=== PATIENT | female | born 1990 | race African-American/Black ===

== ENCOUNTER 2017-11-11 15:02 | Emergency (ER) | payer OTHER ==
[~2017-11-11] VITALS: Ht 188 cm; Wt 99.8 kg
[~2017-11-11 15:02] MED LIST: ALBU8.5H8 IH; LEVO500T59 PO; LORA10TA68 PO; PRED50TA PO
--- NOTE | 2017-11-11 15:36 | RAD ---
PA and lateral chest radiograph. History: Shortness of breath, wheezing. Comparison: March 23, 2016. Findings: Cardiomediastinal silhouette is within normal limits for size. Bilateral lung polanco appear clear without evidence of infiltrate, effusion, or pneumothorax. Impression: 1. No acute cardiopulmonary process. Electronically signed by: Danilo Ortiz MD (11/11/2017 3:33 PM) [facility]
--- NOTE | 2017-11-11 15:55 | PHYS DOC ---
Past History Past Medical History: Asthma Past Surgical History: No Surgical History Alcohol Use: None Drug Use: None Adult General Chief Complaint Chief Complaint: SHORTNESS OF BREATH HPI HPI 27-year-old female presents with shortness of breath. The patient has had increasing shortness of breath for last 2 days. She was diagnosed 1 years ago with asthma and was placed on albuterol inhalers. She has been using these 4 times a day yesterday and today. She is also taking Mucinex and Flonase for what she believes are seasonal allergies. The patient's symptoms are worse at night when she is working at [employer]. She feels like "I just can't get enough air ". The patient is a smoker. She was admitted to the hospital one year ago for several days for what was determined to be an asthma attack. She was on BiPAP at least a couple days. She denies fever or chills. She denies chest pain. He has a dry cough. Review of Systems Review of Systems Constitutional: Denies fever or chills [] Eyes: Denies change in visual acuity, redness, or eye pain [] HENT: Denies nasal congestion or sore throat [] Respiratory: Some shortness of breath, worse with activity [] Cardiovascular: No additional information not addressed in HPI [] GI: Denies abdominal pain, nausea, vomiting, bloody stools or diarrhea [] : Denies dysuria or hematuria [] Musculoskeletal: Denies back pain or joint pain [] Integument: Denies rash or skin lesions [] Neurologic: Denies headache, focal weakness or sensory changes [] Endocrine: Denies polyuria or polydipsia [] All other systems were reviewed and found to be within normal limits, except as documented in this note. Allergies Allergies Allergies Coded Allergies Type Severity Reaction Last Updated Verified No Known Drug Allergies 07/09/14 No Physical Exam Physical Exam Constitutional: Well developed, well nourished, no acute distress, non-toxic appearance. [] HENT: Normocephalic, atraumatic, bilateral external ears normal, oropharynx moist, no oral exudates, nose normal. [] Eyes: PERRLA, EOMI, conjunctiva normal, no discharge. [] Neck: Normal range of motion, no tenderness, supple, no stridor. [] Cardiovascular:Heart rate regular rhythm, no murmur [] Lungs & Thorax: Expiratory wheezes on the right. Decreased breath sounds at the bilateral bases. [] Abdomen: Bowel sounds normal, soft, no tenderness, no masses, no pulsatile masses. [] Skin: Warm, dry, no erythema, no rash. [] Back: No tenderness, no CVA tenderness. [] Extremities: No tenderness, no cyanosis, no clubbing, ROM intact, no edema. [] Neurologic: Alert and oriented X 3, normal motor function, normal sensory function, no focal deficits noted. [] Psychologic: Affect normal, judgement normal, mood normal. [] Current Patient Data Vital Signs Vital Signs Date Time Temp Pulse Resp B/P (MAP) Pulse Ox O2 Delivery O2 Flow Rate FiO2 11/11/17 15:02 98.2 80 18 95 Room Air EKG EKG [] Radiology/Procedures Radiology/Procedures PA and lateral chest radiograph. History: Shortness of breath, wheezing. Comparison: March 23, 2016. Findings: Cardiomediastinal silhouette is within normal limits for size. Bilateral lung polanco appear clear without evidence of infiltrate, effusion, or pneumothorax. Impression: 1. No acute cardiopulmonary process. Electronically signed by: Danilo Ortiz MD (11/11/2017 3:33 PM) [facility][] Course & Med Decision Making Course & Med Decision Making Pertinent Labs and Imaging studies reviewed. (See chart for details) Chest x-ray is unremarkable. I believe the patient is just having an extended, partially treated asthma attack. I will treat her with Solu-Medrol here in the ED followed by 3 days of prednisone at home. Her OXYGEN saturations on room air have always been in the mid 90s. I stressed to the patient the importance of smoking cessation. [] Dragon Disclaimer Dragon Disclaimer This electronic medical record was generated, in whole or in part, using a voice recognition dictation system. Departure Departure: Referrals: JYOTI QUEEN (PCP) Scripts Prednisone (PREDNISONE) 20 Mg Tablet 3 TAB PO DAILY for 3 Days, #9 TAB Prov: GRANT PRESTON DO 11/11/17 GRANT PRESTON DO November 11, 2017 15:55
[2017-11-11 16:01] VITALS: BP 135/85
[2017-11-11] MEDS ORDERED: PRED20TA PO (16:02)
[2017-11-11] MEDS ORDERED: methylPREDNISolone SOD SUCC PF 125 MG/2 ML VIAL. IM ONE (16:15)
== END 2017-11-11 16:23 | disposition home or self-care (01) ==
LOC: ER 15:02
DX: J45.901 Unspecified asthma with (acute) exacerbation (principal)
CPT/HCPCS: 71046; 96372; 99284; J2930

== ENCOUNTER 2018-01-29 17:11 | Emergency (ER) | payer OTHER ==
[~2018-01-29] VITALS: Ht 188 cm; Wt 99.8 kg
[~2018-01-29 17:11] MED LIST changes: +PRED20TA PO
[2018-01-29 17:17] VITALS: BP 117/72
[2018-01-29] MEDS ORDERED: levoFLOXacin 750 MG TABLET PO ONE (17:30)
[2018-01-29] MEDS ORDERED: predniSONE 20 MG TABLET PO ONE (17:30)
[2018-01-29] MEDS ORDERED: IPRATRPIUM/ALBUTEROL 0.5/2.5MG 3 ML NEBU. NEB ONE (17:30)
[2018-01-29] MEDS ORDERED: LEVO500T59 PO (18:01)
[2018-01-29] MEDS ORDERED: BENZ100C PO (18:01)
[2018-01-29] MEDS ORDERED: ALBU8.5H8 INH (18:01)
[2018-01-29] MEDS ORDERED: PRED-299 PO (18:01)
--- NOTE | 2018-01-29 18:01 | PHYS DOC ---
Past History Past Medical History: Asthma Past Surgical History: No Surgical History Alcohol Use: None Drug Use: None Adult General Chief Complaint Chief Complaint: COUGH HPI HPI Patient is a [age] year old [sex] who presents with [] Review of Systems Review of Systems Constitutional: Denies fever or chills [] Eyes: Denies change in visual acuity, redness, or eye pain [] HENT: Denies nasal congestion or sore throat [] Respiratory: Denies cough or shortness of breath [] Cardiovascular: No additional information not addressed in HPI [] GI: Denies abdominal pain, nausea, vomiting, bloody stools or diarrhea [] : Denies dysuria or hematuria [] Musculoskeletal: Denies back pain or joint pain [] Integument: Denies rash or skin lesions [] Neurologic: Denies headache, focal weakness or sensory changes [] Endocrine: Denies polyuria or polydipsia [] All other systems were reviewed and found to be within normal limits, except as documented in this note. Current Medications Current Medications Current Medications Medications (Trade) Dose Ordered Sig/Meenakshi Start Time Stop Time Status Last Admin Dose Admin Albuterol/ Ipratropium (Duoneb) 3 ml 1X ONCE 01/29/18 17:30 01/29/18 17:31 DC 01/29/18 17:36 3 ML Levofloxacin (Levaquin) 750 mg 1X ONCE 01/29/18 17:30 01/29/18 17:31 DC 01/29/18 17:54 750 MG Prednisone (Prednisone) 40 mg 1X ONCE 01/29/18 17:30 01/29/18 17:31 DC 01/29/18 17:54 40 MG Allergies Allergies Allergies Coded Allergies Type Severity Reaction Last Updated Verified No Known Drug Allergies 07/09/14 No Physical Exam Physical Exam Constitutional: Well developed, well nourished, no acute distress, non-toxic appearance. [] HENT: Normocephalic, atraumatic, bilateral external ears normal, oropharynx moist, no oral exudates, nose normal. [] Eyes: PERRLA, EOMI, conjunctiva normal, no discharge. [] Neck: Normal range of motion, no tenderness, supple, no stridor. [] Cardiovascular:Heart rate regular rhythm, no murmur [] Lungs & Thorax: Bilateral breath sounds clear to auscultation [] Abdomen: Bowel sounds normal, soft, no tenderness, no masses, no pulsatile masses. [] Skin: Warm, dry, no erythema, no rash. [] Back: No tenderness, no CVA tenderness. [] Extremities: No tenderness, no cyanosis, no clubbing, ROM intact, no edema. [] Neurologic: Alert and oriented X 3, normal motor function, normal sensory function, no focal deficits noted. [] Psychologic: Affect normal, judgement normal, mood normal. [] Current Patient Data Vital Signs Vital Signs Date Time Temp Pulse Resp B/P (MAP) Pulse Ox O2 Delivery O2 Flow Rate FiO2 01/29/18 17:36 97 Room Air 01/29/18 17:17 98.9 87 18 EKG EKG [] Radiology/Procedures Radiology/Procedures [] Course & Med Decision Making Course & Med Decision Making Pertinent Labs and Imaging studies reviewed. (See chart for details) [] Dragon Disclaimer Dragon Disclaimer This electronic medical record was generated, in whole or in part, using a voice recognition dictation system. Departure Departure: Impression: Primary Impression: Bronchitis Disposition: HOME, SELF-CARE Condition: STABLE Referrals: JYOTI QUEEN (PCP) Patient Instructions: Acute Bronchitis, Xoio-ro-Edpp Scripts Benzonatate (TESSALON PERLE) 100 Mg Capsule 100 MG PO TID PRN PRN for COUGH, #20 CAP Prov: LATIA EVANS DO 01/29/18 Levofloxacin (LEVAQUIN) 500 Mg Tablet 750 MG PO QD, #7 Prov: LATIA EVANS DO 01/29/18 Prednisone (Deltasone) 20 Mg Tablet 40 MG PO DAILY, #8 TAB Start on Tuesday01/30/18 Prov: LATIA EVANS DO 01/29/18 Albuterol Sulfate (PROAIR HFA INHALER) 8.5 Gm Hfa.aer.ad 1 PUFF INH PRN Q6HRS PRN for SHORTNESS OF BREATH, #1 INHALER 0 Refills Prov: LATIA EVANS DO 01/29/18 LATIA EVANS DO Jan 29, 2018 18:01
--- NOTE | 2018-01-30 08:11 | RAD ---
EXAM:CHEST PA LATERAL DATE: 01/29/2018 5:46 PM CLINICAL INDICATION: cough x 2 days, hx of asthma, pneumonia, pt shielded, lmp jan 2018 COMPARISON: 11/11/2017, 03/23/2016 FINDINGS: The heart is not enlarged. Mediastinal and hilar contours are normal. No focal parenchymal airspace opacity. No pleural effusion or pneumothorax. IMPRESSION: No radiographic evidence for acute cardiopulmonary process. Electronically signed by: Angelo Vicente MD (01/30/2018 8:07 AM) [facility]
== END 2018-01-29 18:03 | disposition home or self-care (01) ==
LOC: ER 17:11
DX: J40 Bronchitis, not specified as acute or chronic (principal); J45.909 Unspecified asthma, uncomplicated
CPT/HCPCS: 71046; 94640; 99284; J7512; J7620